=== PATIENT | male | born 2000 | race Two or more races ===

== ENCOUNTER 2022-10-06 02:32 | Emergency (ER) | payer MEDICAID ==
[~2022-10-06] VITALS: Ht 175.3 cm; Wt 65.5 kg
[2022-10-06] MEDS ORDERED: HYDR50CA PO (04:03)
[2022-10-06 05:09] VITALS: BP 129/84
== END 2022-10-06 05:16 | disposition home or self-care (01) ==
LOC: ER 02:32
DX: F41.0 Panic disorder [episodic paroxysmal anxiety] (principal); R07.89 Other chest pain; Z79.899 Other long term (current) drug therapy
CPT/HCPCS: 93005

== ENCOUNTER 2023-08-22 23:55 | Emergency (ER) | payer MEDICAID ==
[~2023-08-22] VITALS: Ht 175.3 cm; Wt 68.7 kg
[~2023-08-22 23:55] MED LIST: HYDR50CA PO
[2023-08-23] MEDS ORDERED: PRED20TA2 PO (01:29)
[2023-08-23] MEDS ORDERED: AMOX875T4 PO (01:29)
[2023-08-23] MEDS ORDERED: DexAMETHasone SOD PHOS 10MG/1ML VIAL INJ IM ONE (01:30)
[2023-08-23 02:30] VITALS: BP 132/75; PULSE 78; RESP 18; TEMP 98; O2SAT 97
== END 2023-08-23 03:30 | disposition home or self-care (01) ==
LOC: ER 08-23 00:01
DX: J02.9 Acute pharyngitis, unspecified (principal); F41.9 Anxiety disorder, unspecified; Z79.899 Other long term (current) drug therapy
CPT/HCPCS: 96372; 99283; J1100

== ENCOUNTER 2023-08-26 01:22 | Emergency (ER) | payer MEDICAID ==
[~2023-08-26] VITALS: Ht 175.3 cm; Wt 64.7 kg
[~2023-08-26 01:22] MED LIST changes: +AMOX875T4 PO; +PRED20TA2 PO
[2023-08-26 01:48] LABS: Basophils # (auto) 0 10 ^3/uL (0-0.2); Basophils % (auto) 0.3 % (0.0-2.0); Eosinophils # (auto) 0 10 ^3/uL (0-0.8); Eosinophils % (auto) 0.2 % (0.0-7.0); Hematocrit 47.2 % (41.0-53.0); Hemoglobin 16.5 g/dL (13.5-17.5); Lymphocytes # (auto) 2.7 10 ^3/uL (0.4-5.4); Mean Corpuscular Hemoglobin 31.5 pg (28.0-32.0); Monocytes # (auto) 1.1 10 ^3/uL (0-1.3); Monocytes % (auto) 9.2 % (0.0-12.0); Neutrophils # (auto) 7.7 10 ^3/uL (1.6-8.6); Neutrophils % (auto) 67.3 % (37.0-80.0); Nucleated Red Blood Cells % 0.2 %; Red Blood Cells 5.25 10^6/uL (4.5-5.90); Red Cell Distribution Width 12.4 % (11.8-14.3); White Blood Cell 11.5 10^3/uL (4.4-10.8)
[2023-08-26 02:02] LABS: Alanine Aminotransferase 23 U/L (7-40); Alkaline Phosphatase 52 U/L (46-116); Anion Gap 9 (5-15); Aspartate Aminotransferase 17 U/L (13-40); BUN/Creatinine Ratio 7.8 (10.0-20.0); Blood Urea Nitrogen 7 mg/dL (9-23); Calcium 9.9 mg/dL (8.7-10.4); Carbon Dioxide 26 mmol/L (20-30); Chloride 100 mmol/L (98-107); Glucose 101 mg/dL (74-106); Potassium 3.3 mmol/L (3.5-5.1); Sodium 135 mmol/L (136-145)
[2023-08-26 02:03] LABS: Bilirubin, Total 1.1 mg/dL (0.2-1.0); Total Protein 7.9 g/dL (5.7-8.2)
[2023-08-26 02:05] LABS: INR 1.04 (0.9-1.15); Partial Thromboplastin Time 24.8 SEC (24.5-34.5); Prothrombin Time 10.9 sec (9.3-11.8)
[2023-08-26] MEDS ORDERED: KETOROLAC TROMETH 30 MG/ML 1ML VIAL IV ONE (07:00)
[2023-08-26] MEDS ORDERED: KETOROLAC TROMETH 30 MG/ML 1ML VIAL IM ONE (07:30)
[2023-08-26 07:34] VITALS: BP 134/76; PULSE 78; RESP 16; TEMP 98; O2SAT 97
== END 2023-08-26 07:34 | disposition home or self-care (01) ==
LOC: ER 01:22
DX: J02.9 Acute pharyngitis, unspecified (principal); F41.9 Anxiety disorder, unspecified; Z79.899 Other long term (current) drug therapy
CPT/HCPCS: 36415; 71045; 80053; 84484; 85025; 85610; 85730; 93005; 96372; 99285; J1885